=== PATIENT | female | born 1985 | race Two or more races ===

== ENCOUNTER 2016-09-01 10:17 | Emergency (ER) | payer SELFPAY ==
[~2016-09-01] VITALS: Ht 162.6 cm; Wt 73.5 kg
[2016-09-01 10:39] VITALS: BP 115/79
[2016-09-01] MEDS ORDERED: PRED-220 PO (10:54)
--- NOTE | 2016-09-01 10:54 | PHYS DOC ---
Adult General Chief Complaint Chief Complaint: ABDOMINAL PAIN IN HPI HPI Patient is a 30-year-old female that speaks [place] is a . She states that her last menstrual. Was June 05, 2016 she did get an ultrasound approximately 2 weeks ago but has not been back to follow-up with her [facility]SOCIAL SERVICE DIRECTOR physician. She started having low abdominal pain yesterday and some spotting today. She denies any fevers chills. She states her abdominal pain is similar to her menstrual cycle. Review of Systems Review of Systems Constitutional: Denies fever or chills [] Eyes: Denies change in visual acuity, redness, or eye pain [] HENT: Denies nasal congestion or sore throat [] Respiratory: Denies cough or shortness of breath [] Cardiovascular: No additional information not addressed in HPI [] GI: Denies nausea, vomiting, bloody stools or diarrhea, positive for abdominal pain, [] : Denies dysuria or hematuria [] Musculoskeletal: Denies back pain or joint pain [] Integument: Positive for rash over arms and torso] Neurologic: Denies headache, focal weakness or sensory changes [] Endocrine: Denies polyuria or polydipsia [] Physical Exam Physical Exam Constitutional: Well developed, well nourished, no acute distress, non-toxic appearance. [] HENT: Normocephalic, atraumatic, bilateral external ears normal, oropharynx moist, no oral exudates, nose normal. [] Eyes: PERRLA, EOMI, conjunctiva normal, no discharge. [] Neck: Normal range of motion, no tenderness, supple, no stridor. [] Cardiovascular:Heart rate regular rhythm, no murmur [] Lungs & Thorax: Bilateral breath sounds clear to auscultation [] Abdomen/pelvic: Bowel sounds normal, soft, no tenderness, no masses, no pulsatile masses. Normal external genitalia, no cervical motion tenderness, mild blood in the vault Skin: Warm, dry, no erythema, rash over arms and chest is consistent with allergic reaction Back: No tenderness, no CVA tenderness. [] Extremities: No tenderness, no cyanosis, no clubbing, ROM intact, no edema. [] Neurologic: Alert and oriented X 3, normal motor function, normal sensory function, no focal deficits noted. [] Psychologic: Affect normal, judgement normal, mood normal. [] Current Patient Data Vital Signs Vital Signs Date Time Temp Pulse Resp B/P (MAP) Pulse Ox O2 Delivery O2 Flow Rate FiO2 09/01/16 10:39 98.9 88 18 115/79 (91) 99 98.9 Lab Values Laboratory Tests Test 09/01/16 09:48 09/01/16 10:39 09/01/16 11:00 POC Urine HCG, Qualitative Hcg positive (Negative) Urine Collection Type Void Urine Color Yellow Urine Clarity Cloudy Urine pH 5.5 Urine Specific [place] 1.020 Urine Protein Negative mg/dL (NEG-TRACE) Urine Glucose (UA) Negative mg/dL (NEG) Urine Ketones (Stick) Negative mg/dL (NEG) Urine Blood Large (NEG) Urine Nitrite Negative (NEG) Urine Bilirubin Negative (NEG) Urine Urobilinogen Dipstick 0.2 mg/dL (0.2 mg/dL) Urine Leukocyte Esterase Moderate (NEG) Urine RBC 20-40 /HPF (0-2) Urine WBC 5-10 /HPF (0-4) Urine Squamous Epithelial Cells Many /LPF Urine Bacteria Few /HPF (0-FEW) Urine Mucus Marked /LPF White Blood Count 9.4 x10^3/uL (4.0-11.0) Red Blood Count 4.48 x10^6/uL (3.50-5.40) Hemoglobin 12.4 g/dL (12.0-15.5) Hematocrit 38.2 % (36.0-47.0) Mean Corpuscular Volume 85 fL (79-100) Mean Corpuscular Hemoglobin 28 pg (25-35) Mean Corpuscular Hemoglobin Concent 33 g/dL (31-37) Red Cell Distribution Width 14.1 % (11.5-14.5) Platelet Count 452 x10^3/uL (140-400) H Neutrophils (%) (Auto) 65 % (31-73) Lymphocytes (%) (Auto) 25 % (24-48) Monocytes (%) (Auto) 8 % (0-9) Eosinophils (%) (Auto) 2 % (0-3) Basophils (%) (Auto) 0 % (0-3) Neutrophils # (Auto) 6.1 x10^3uL (1.8-7.7) Lymphocytes # (Auto) 2.3 x10^3/uL (1.0-4.8) Monocytes # (Auto) 0.8 x10^3/uL (0.0-1.1) Eosinophils # (Auto) 0.2 x10^3/uL (0.0-0.7) Basophils # (Auto) 0.0 x10^3/uL (0.0-0.2) Maternal Serum HCG Beta Subunit 18249 mIU/mL (0-5) H Laboratory Tests 09/01/16 11:00 Microbiology 09/01/16 Wet Prep - Final, Complete EKG EKG [] Radiology/Procedures Radiology/Procedures [facility] [address] [place] [address] IMAGING REPORT Signed PATIENT: NAY CORTES ACCOUNT: [id number] : 1985 LOCATION: ER AGE: 30 SEX: F EXAM STATUS: REG ER ORD. PHYSICIAN: JOANNE MCCLOUD APRN REASON: 12 weeks vaginal bleeding with abdominal pain PROCEDURE: OB < 14 WKS Obstetrical ultrasound, 09/01/2016: History: Bleeding and cramping Transabdominal scans were obtained. The uterus is retroverted. The uterus contains a single gestational sac. The gestational sac measures 4-5 cm in diameter. There is echogenic debris within the sac. There is a small structure along the dependent aspect of the gestational sac which probably represents a pole. It measures 1.5 cm in length compatible with a gestational age of 8 weeks. No heart motion is seen. This is abnormal indicating a nonviable . The ovaries are unremarkable. No free fluid is evident in the pelvis. IMPRESSION: Nonviable early intrauterine . DICTATED and SIGNED BY: DEVIN HERNANDEZ MD DATE: 09/01/16 1122 CC: JOSÉ LUTZ MD; JOANNE MCCLOUD APRN; NO PCP ~ Impressions: demise Course & Med Decision Making Course & Med Decision Making Pertinent Labs and Imaging studies reviewed. (See chart for details) RUN DATE: 09/01/16 PAGE 1 RUN TIME: 1257 [facility] [address] [place] [address] Stanley Sheffield M.D., [employer] PATIENT: NAY CORTES ACCT: [id number] LOC: [facility] U : [id number] AGE/SX: 30/ ROOM: REG : 09/01/[address]: JOSÉ LUTZ MD : 1985 BED: DIS : STATUS: REG [facility] TLOC: SPEC #: [id number] BERTRAM: 09/01/16 STATUS: COMP REQ #: [id number] RECD: 09/01/[address]: JOSÉ LUTZ MD SOURCE: VAGINAL ENTR: 09/01/[address]: JOSE YU SPDESC: ORDERED: WET PREP COMMENTS: Has specimen been collected/obtained? Y Procedure Result WET PREP Final YEAST NONE SEEN TRICHOMONAS NONE SEEN CLUE CELLS NONE SEEN ALTERED RAMAN ALTERED RAMAN PRESENT SUGGESTIVE OF BACTERIAL VAGINOSIS WBCS OCCASIONAL RBCS MODERATE Ultrasound shows demise. Patient does have an DIGITAL COORDINATOR physician she can follow-up with the next few days. She does have a UTI and bacterial vaginosis. We'll treat with nitrofurantoin and clindamycin. Return precautions given her and her is agreeable to the plan and being discharged in stable condition. END OF REPORT Dragon Disclaimer Dragon Disclaimer This electronic medical record was generated, in whole or in part, using a voice recognition dictation system. Departure Departure Impression: Primary Impression: demise Disposition: 01 HOME, SELF-CARE Condition: STABLE Patient Instructions: Miscarriage Additional Instructions: You are having a miscarriage. You will have additional cramping and bleeding over the next several days. You will need to follow-up with your SOCIAL SERVICE DIRECTOR physician. You also have a bladder infection and will need take antibiotics for the next 7 days. If you develope fevers, severe abdominal pain or other concerns please return back to emergency department. Scripts Nitrofurantoin Macrocrystal (NITROFURANTOIN) 100 Mg Capsule 1 CAP PO BID, #14 CAP Prov: JOSÉ LUTZ MD 09/01/16 Clindamycin Hcl (CLINDAMYCIN HCL) 300 Mg Capsule 1 CAP PO BID, #14 CAP Prov: JOSÉ LUTZ MD 09/01/16 JOSÉ LUTZ MD Sep 01, 2016 10:54
[2016-09-01 10:56] LABS: BILIRUBIN,URINE NEGATIVE (NEG); GLUCOSE,URINE NEGATIVE (NEG); NITRITE,URINE NEGATIVE (NEG); PH,URINE 5.5; PROTEIN,URINE NEGATIVE (NEG-TRACE); UROBILINOGEN,URINE 0.2 mg/dL (0.2 mg/dL)
[2016-09-01 11:08] LABS: BACTERIA,URINE FEW /HPF (0-FEW); RBC,URINE 20-40 /HPF (0-2); SQUAMOUS EPITHELIAL CELL,UR MANY /LPF
[2016-09-01 11:28] LABS: BASO % 0 % (0-3); EOS % 2 % (0-3); HEMATOCRIT 38.2 % (36.0-47.0); HEMOGLOBIN 12.4 g/dL (12.0-15.5); LYMPH # 2.3 x10^3/uL (1.0-4.8); LYMPH % 25 % (24-48); MEAN CORPUSCULAR HEMOGLOBIN 28 pg (25-35); MEAN CORPUSCULAR HGB CONC 33 g/dL (31-37); MEAN CORPUSCULAR VOLUME 85 fL (79-100); MONO % 8 % (0-9); NEUT % 65 % (31-73); PLATELET COUNT 452 x10^3/uL (140-400); RED BLOOD COUNT 4.48 x10^6/uL (3.50-5.40); RED CELL DISTRIBUTION WIDTH 14.1 % (11.5-14.5); WHITE BLOOD COUNT 9.4 x10^3/uL (4.0-11.0)
--- NOTE | 2016-09-01 11:32 | RAD ---
Obstetrical ultrasound, 09/01/2016: History: Bleeding and cramping Transabdominal scans were obtained. The uterus is retroverted. The uterus contains a single gestational sac. The gestational sac measures 4-5 cm in diameter. There is echogenic debris within the sac. There is a small structure along the dependent aspect of the gestational sac which probably represents a pole. It measures 1.5 cm in length compatible with a gestational age of 8 weeks. No heart motion is seen. This is abnormal indicating a nonviable . The ovaries are unremarkable. No free fluid is evident in the pelvis. IMPRESSION: Nonviable early intrauterine .
[2016-09-01] MEDS ORDERED: CLIN300C8 PO (13:26)
[2016-09-01] MEDS ORDERED: NITR100C PO (13:26)
== END 2016-09-01 14:04 | disposition home or self-care (01) ==
LOC: ER 10:17
DX: O36.4XX0 Maternal care for intrauterine death, not applicable or unspecified (principal); Z3A.08 8 weeks gestation of pregnancy
CPT/HCPCS: 36415; 76801; 81001; 81025; 84702; 85027; 86900; 86901; 87086; 87491; 87591; 99285; Q0111